=== PATIENT | male | born 1960 | race Caucasian/White ===

== ENCOUNTER 2017-01-17 18:24 | Emergency (ER) | payer OTHER ==
[~2017-01-17] VITALS: Ht 172.7 cm; Wt 122.5 kg
[~2017-01-17 18:24] MED LIST: FLEXERIL10 MG PO; GLIMEPIRIDE4 MG PO; LOSARTAN POTAS100 MG PO; MEDROL DOSEPAK1 PAC PO; METFORMIN1000 MG PO; NAPROXEN500 M1 PO; NORVASC 5MG TAB5 MG PO; ZANAFLEX4 MG PO
[2017-01-17] MEDS ORDERED: CYCLOBENZAPRINE10 M1 PO (20:07)
[2017-01-17] MEDS ORDERED: NAPROSYN500 M1 PO (20:07)
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
[2017-01-17 20:19] VITALS: BP 141/84
== END 2017-01-17 20:23 ==
LOC: ERH 18:24
DX: M54.5 Low back pain (principal)

== ENCOUNTER 2017-03-29 12:08 | Emergency (ER) | payer OTHER ==
[~2017-03-29] VITALS: Ht 172.7 cm; Wt 127.9 kg
[~2017-03-29 12:08] MED LIST changes: +CYCLOBENZAPRINE10 M1 PO; +NAPROSYN500 M1 PO
[2017-03-29 12:12] VITALS: BP 130/86
--- NOTE | 2017-03-29 12:17 | ED UPPER/LOWER EXTREMITY COMPL ---
History of Present Illness General Chief Complaint: Lower Extremity Problems Stated Complaint: LEFT CALF MORE SWOLLEN THAN RIGHT Source: patient, old records Exam Limitations: no limitations Vital Signs & Intake/Output Vital Signs & Intake/Output Vital Signs Date Time Temp Pulse Resp B/P B/P Pulse O2 O2 Flow FiO2 Mean Ox Delivery Rate 03/29 1212 97.7 106 20 130/86 97 Room Air Allergies Coded Allergies: No Known Allergies (01/17/17) Reconcile Medications Amlodipine (Norvasc 5MG Tab) 5 MG TABLET 1 TAB PO DAILY BP (Reported) CYCLOBENZAPRINE HCL (Flexeril) 10 MG TAB 1 TAB PO TID PRN SPASM Avoid operating motor vehicle or heavy machinery Cyclobenzaprine HCl 10 MG TABLET 1 TAB PO QPM PRN MUSCLE SPASMS Glimepiride 4 MG TABLET 1 TAB PO DAILY DIABETES (Reported) Losartan Potassium 100 MG TABLET 1 TAB PO DAILY BP (Reported) METFORMIN HCL (Metformin) 1,000 MG TABLET 1 TAB PO BID DIABETES (Reported) Methylprednisolone. (Medrol) 1 PAC PAC 1 PAC PO DAILY INFLAMMATION USE DIRECTED Naproxen 500 MG ECT 1 TAB PO BID PRN PAIN Naproxen (Naprosyn) 500 MG TABLET 1 TAB PO BID PRN BACK PAIN Tizanidine Hydrochloride (Zanaflex) 4 MG TAB 1 TAB PO TID SPASM Triage Note: PT C/O LEFT CALF SWELLING X 1 WEEK. PT DENIES INJURY. NO RECENT TRAVEL Triage Nurses Notes Reviewed? yes Onset: Gradual Duration: week(s): (1), constant Timing: recent history Severity: mild, moderate Severity Numbers: 6 Pain/Injury Location: Left: Leg. Method of Injury: unknown No Modifying Factors: none Associated Symptoms: swelling HPI: 57-year-old male presents to ER with history of hypertension diabetes complaining of one-week history of progressively worsening left calf swelling constant for the past 1 week associated pain behind his left knee. He states about a month ago he had similar symptoms at which time he was referred to an orthopedist by his primary care physician and had an ultrasound done that was unremarkable. The swelling and pain resolved at that time he denies any known injury or trauma, no recent immobility or travel. Denies chest pain shortness of breath or rashes to his skin. No fever no chills he is not taken anything for his symptoms. 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 see below for history Cardiovascular: hypertension Endocrine: NIDDM Surgical History Surgical History: non-contributory Psychosocial History What is your primary language Brazilian Tobacco Use: Never used ETOH Use: occasional use Illicit Drug Use: denies illicit drug use Family History Hx Contributory? No Review of Systems Review of Systems Constitutional: Reports: see HPI. All Other Systems: Reviewed and Negative Comments Review of systems: See HPI, All other systems negative. Constitutional, no chills no fever, no malaise no weight loss HEENT: No visual changes no sore throat no congestion, no ear pain Cardiovascular: No chest pain , no palpitation , no orthopnea Skin: no rashes, no change in skin Respiratory: No dyspnea no cough no sputum no hemoptysis GI: No nausea no vomiting, no diarrhea, no bloating/constipation : No dysuria No hematuria, no frequency, no discharge Muscle skeletal: No joint pain, no joint swelling, no back pain, no neck pain, Neurologic: No numbness no confusion, no headache Psych: No stress no depression,. Heme/endocrine: No bruising no bleeding Immunology: No lymphadenopathy Physical Exam Physical Exam General Appearance: well developed/nourished, no apparent distress, alert, awake Comments: Well-developed well-nourished patient in no apparent distress. HEENT: Atraumatic, extraocular motion intact Neck: Supple, FROM Back: FROM Cardiovascular: Regular rate and rhythms no murmurs rubs Respiratory: No respiratory distress. Patient speaking in full complete sentences. Breath sounds clear to auscultation bilaterally: NO W/R/R Upper Extremities: full range of motion Hip/Pelvis: Atraumatic/Stable. FROM. No pain with pelvic compression Knee: Atraumatic/stable. FROM. No joint swelling, no effusion. No laxity. Negative sánchez/anterior drawer test. No pain with ROM Leg: Atraumatic. Neg homans sign, Nontender. No edema, 5 out of 5 strength in the lower extremity, normal dorsiflexion of great toe bilaterally, gross sensation is intact, Ankle/Foot: Atraumatic/stable. Skin intact. FROM. No swelling, no effusion. No laxity on exam Pulses: Normal/equal DP/PT pulses bilaterally. Brisk cap refill Neuro: awake, alert, and oriented to person, place and time. There were no obvious focal neurologic abnormalities. Skin: Warm & dry;No appreciable rash on exposed skin Psych: Mood affect normal, normal memory normal judgment. Progress Differential Diagnosis: cellulitis, compartment syndrome, contusion, dislocation , DVT, sprain, tendon injury Plan of Care: Orders Procedure Date/time Status US-UNILATERAL VENOUS DOPPLER 03/29 1237 Active Ultrasound ordered patient denies any symptoms at this time I discussed with the patient at length all of their results. I had an extensive conversation regarding need for close follow up with their primary care physician this week as well as return precautions. I answered all of their questions, they feel comfortable with the plan and follow-up care. (GEOVANY GOINS,ESTEFANY) Diagnostic Imaging: Viewed by Me: Ultrasound. Discussed w/RAD: Ultrasound. Radiology Impression: PATIENT: JOCELYN FARR PRESENT AGE: 57 PATIENT ACCOUNT NO: [id number] : 60 LOCATION: [facility] ORDERING PHYSICIAN: ESTEFANY GOINS SERVICE DATE: 03/29/17-1236 EXAM TYPE: US - US- UNILATERAL VENOUS DOPPLER EXAMINATION: US TRIPLEX LOWER EXTREMITY, LEFT CLINICAL INFORMATION: Left lower extremity edema. COMPARISON: Left lower extremity venous ultrasound dated 01/07/2017. TECHNIQUE: Color-flow triplex imaging with spectral analysis and compression Doppler were performed on the left lower extremity. FINDINGS: Respiratory variation, normal compression and augmented flow are noted throughout the left lower extremity. The visualized common femoral vein, proximal greater saphenous vein, femoral vein, profunda femoral vein, popliteal vein and visualized mid calf venous segments show no evidence of deep venous thrombosis. There is no Curry's cyst. IMPRESSION: Normal triplex scan without evidence of deep venous thrombosis involving the left lower extremity. DICTATED BY: HUGO BURNETT MD DATE/TIME DICTATED:03/29/171336 [employer] SUPERVISOR: ANGELA DATE/TIME TRANSCRIBED:03/29/171336 CONFIDENTIAL, DO NOT COPY WITHOUT APPROPRIATE AUTHORIZATION. <Electronically signed in Other Vendor System> SIGNED BY: HUGO BURNETT MD 03/29/17 1342 Departure Departure Time of Disposition: 1354 Disposition: HOME OR SELF CARE Condition: Stable Clinical Impression Primary Impression: Leg edema Referrals: Tamra DUMONT MD (PCP/Family) Additional Instructions: follow up with your pmd dr dumont on saturday. rest, warm compresses, keep leg elevated. return to the er at anytime sooner with any complaints Departure Forms: Customer Survey General Discharge Information
--- NOTE | 2017-03-29 13:42 | ULTRASOUND REPORT ---
EXAMINATION: US TRIPLEX LOWER EXTREMITY, LEFT CLINICAL INFORMATION: Left lower extremity edema. COMPARISON: Left lower extremity venous ultrasound dated 01/07/2017. TECHNIQUE: Color-flow triplex imaging with spectral analysis and compression Doppler were performed on the left lower extremity. FINDINGS: Respiratory variation, normal compression and augmented flow are noted throughout the left lower extremity. The visualized common femoral vein, proximal greater saphenous vein, femoral vein, profunda femoral vein, popliteal vein and visualized mid calf venous segments show no evidence of deep venous thrombosis. There is no Curry's cyst. IMPRESSION: Normal triplex scan without evidence of deep venous thrombosis involving the left lower extremity.
== END 2017-03-29 14:15 | disposition admitted as inpatient to this hospital (09) ==
LOC: ERH 12:08
DX: R60.0 Localized edema (principal)